=== PATIENT | female | born 1965 | race Caucasian/White ===

== ENCOUNTER 2017-10-07 15:56 | Emergency (ER) | payer OTHER ==
[~2017-10-07] VITALS: Ht 172.7 cm; Wt 61.9 kg
[~2017-10-07 15:56] MED LIST: MULT-6 PO
[2017-10-07 15:58] VITALS: BP 125/85
[2017-10-07] MEDS ORDERED: ONDANSETRON 2MG/ML, 2ML IVPush ONE (16:30)
[2017-10-07] MEDS ORDERED: SODIUM CHLORIDE FLUSH 10ML SYR IVF ONE (16:30)
[2017-10-07 16:35] LABS: MEAN CORPUSCULAR HEMOGLOBIN 31.7 pg (27.0-34.8); MEAN CORPUSCULAR HGB CONC 33.9 g/dL (32.4-35.8); MEAN CORPUSCULAR VOLUME 93.3 fL (80-100); MEAN PLATELET VOLUME 7.6 fL (7.4-10.4); PLATELET COUNT 228 x10^3/uL (130-400); RED BLOOD COUNT 4.24 x10^6/uL (3.82-5.3); RED CELL DISTRIBUTION WIDTH 12.7 % (9.6-15.2)
[2017-10-07 16:37] LABS: MD YES
[2017-10-07 16:47] LABS: ALBUMIN 3.6 g/dL (3.4-5.0); ANION GAP 7 mmol/L (5-15); CALCIUM 8.4 mg/dL (8.5-10.1); CHLORIDE 106 mmol/L (98-107)
[2017-10-07 16:50] LABS: ALANINE AMINOTRANSFERASE 25 U/L (12-78); ALKALINE PHOSPHATASE 53 U/L (45-117); BILIRUBIN,TOTAL 0.4 mg/dL (0.2-1.0); CREATININE 0.93 mg/dL (0.55-1.02); TOTAL PROTEIN 8.1 g/dL (6.4-8.2)
[2017-10-07 17:10] LABS: LYMPH#(MANUAL) 1.13 x10^3/uL (1-3.4); LYMPHS% (MANUAL) 42 % (22-44); MONOS#(MANUAL) 0.24 x10^3/uL (0.3-2.7); MONOS% (MANUAL) 9 % (2-9); REACTIVE LYMPHS # (MANUAL) 0.05 x10^3/uL (0-0); REACTIVE LYMPHS % (MANUAL) 2 % (0-0); SEG#(MANUAL) 1.27 x10^3/uL (1.8-6.8); SEGS% (MANUAL) 47 % (42-75)
[2017-10-07 17:11] LABS: <PLATELET ESTIMATE> ADEQUATE; <PLT MORPHOLOGY> NORMAL PLT MORPH; <RBC MORPHOLOGY> NORMAL
[2017-10-07 20:16] LABS: MICROSCOPIC NOT IND
[2017-10-07 20:19] LABS: CULTURE INDICATED? NO
== END 2017-10-07 21:22 | disposition home or self-care (01) ==
LOC: ED 20:43
DX: R10.2 Pelvic and perineal pain (principal)
CPT/HCPCS: 36415; 80053; 81003; 83690; 85025; 99284

== ENCOUNTER 2020-03-30 17:37 | Emergency (ER) | payer OTHER ==
[~2020-03-30] VITALS: Ht 172.7 cm; Wt 66.7 kg
[2020-03-30 19:08] LABS: BASOPHILS # (AUTO) 0.02 x10^3/uL (0-0.1); BASOPHILS % (AUTO) 0 % (0-1); EOSINOPHILS # (AUTO) 0.01 x10^3/uL (0-0.4); EOSINOPHILS % (AUTO) 0 % (1-7); LYMPHOCYTES # (AUTO) 1.04 x10^3/uL (1-3.4); LYMPHOCYTES % (AUTO) 14 % (22-44); MD NO; MEAN CORPUSCULAR HEMOGLOBIN 32.4 pg (27.0-34.8); MEAN CORPUSCULAR HGB CONC 33.2 g/dL (32.4-35.8); MEAN CORPUSCULAR VOLUME 97.6 fL (80-100); MONOCYTES % (AUTO) 7 % (2-9); NEUTROPHILS # (AUTO) 5.82 x10^3/uL (1.8-6.8); NEUTROPHILS % (AUTO) 79 % (42-75); PLATELET COUNT 306 x10^3/uL (130-400); RED BLOOD COUNT 4.48 x10^6/uL (3.82-5.3); RED CELL DISTRIBUTION WIDTH 13.9 % (9.6-15.2)
--- NOTE | 2020-03-30 19:18 | NUR ---
PT. AMBULATORY TO ROOM FROM LOBBY AT THIS TIME.
[2020-03-30 19:19] LABS: ALBUMIN 4.1 g/dL (3.4-5.0); ANION GAP 5 mmol/L (5-15); CALCIUM 8.8 mg/dL (8.5-10.1); CHLORIDE 110 mmol/L (98-107)
[2020-03-30 19:23] LABS: ALANINE AMINOTRANSFERASE 38 U/L (12-78); ALKALINE PHOSPHATASE 55 U/L (45-117); BILIRUBIN,TOTAL 0.2 mg/dL (0.2-1.0); CREATININE 0.88 mg/dL (0.55-1.02); TOTAL PROTEIN 8.8 g/dL (6.4-8.2)
[2020-03-30 21:42] VITALS: BP 164/83
--- NOTE | 2020-03-30 21:45 | NUR ---
PATIENT HAS REDNESS AND DISCOMFORT FROM ADHESIVE OF PST SPECIALIST AND PULSE 0X. PATIENT REMOVED MONITORS AT THIS TIME. VITALS RECHECKED, NO S/S OF DISTRESS
== END 2020-03-30 22:02 ==
LOC: ED 21:12
DX: G43.C0 Periodic headache syndromes in child or adult, not intractable (principal); I10 Essential (primary) hypertension; R00.0 Tachycardia, unspecified; R07.9 Chest pain, unspecified
CPT/HCPCS: 36415; 71045; 80053; 85025; 93005; 99285

== ENCOUNTER 2020-08-25 07:58 | Outpatient (CLI) | payer OTHER | END 2020-08-25 23:59 | disposition home or self-care (01) | LOC: CFH 07:58 | PROVIDERS: ATTEND Internal Medicine Cardiovascular Disease | DX: Z02.9 Encounter for administrative examinations, unspecified (principal) ==